=== PATIENT | female | born 1940 | race Caucasian/White ===

== ENCOUNTER 2021-12-18 23:10 | Inpatient (IN) | payer OTHER, BC ==
[~2021-12-18] VITALS: Ht 170.2 cm; Wt 83.5 kg
--- NOTE | 2021-12-18 23:14 | NUR ---
PT VY DOWNSS. TAKEN TO BED 4
[2021-12-18 23:15] VITALS: BP 92/58
[2021-12-18] MEDS ORDERED: NACL 0.9% 1,000 ML IV ONE (23:15)
[2021-12-18 23:39] LABS: BASOPHILS % (AUTO) 1.3 % (0.0-2.0); EOSINOPHILS # (AUTO) 0.2 K/uL (0-0.4); EOSINOPHILS % (AUTO) 5.5 % (0.0-4.0); HEMOGLOBIN 11.4 g/dL (12.0-16.0); LYMPHOCYTES # (AUTO) 0.8 K/uL (2.5-16.5); LYMPHOCYTES % (AUTO) 19.6 % (20.5-51.1); MEAN CORPUSCULAR HEMOGLOBIN 28 pg (27-31); MEAN CORPUSCULAR HGB CONC 33 g/dL (33-37); MEAN CORPUSCULAR VOLUME 84.8 fL (80-94); MONOCYTES # (AUTO) 0.4 K/uL (0.8-1.0); MONOCYTES % (AUTO) 10.7 % (1.7-9.3); NEUTROPHILS # (AUTO) 2.4 K/uL (1.8-7.7); NEUTROPHILS % (AUTO) 62.9 % (42.2-75.2); PLATELET COUNT (AUTO) 276 K/uL (140-450); RED BLOOD CELL COUNT(AUTO) 4.13 MIL/uL (4.20-5.40); RED CELL DISTRIBUTION WIDTH 18.4 % (11.6-13.7); WHITE BLOOD COUNT (AUTO) 3.9 K/uL (4.8-10.8)
--- NOTE | 2021-12-18 23:45 | NUR ---
PT TAKEN TO CT
--- NOTE | 2021-12-19 00:12 | NUR ---
Patient resting comfortably in bed, no c/o pain or s/s of discomfort, chest rise and fall symmetrical.
[2021-12-19 01:02] LABS: ALBUMIN 2.8 g/dL (3.4-5.0); ANION GAP 9.9 (8-16); ASPARTATE AMINOTRANSFERASE 14 U/L (15-37); CARBON DIOXIDE 32.1 mmol/L (21-32); CHLORIDE 105 mmol/L (98-107); CREATININE 0.6 mg/dL (0.6-1.3); GLUCOSE 94 mg/dL (74-106); SODIUM SERUM 143 mmol/L (136-145); TOTAL BILIRUBIN 0.2 mg/dL (0.0-1.0); UREA NITROGEN, BLOOD 10 mg/dL (7-18)
[2021-12-19 03:53] LABS: APPEARANCE,URINE SL CLOUDY (CLEAR); BILIRUBIN,URINE NEGATIVE (NEGATIVE); BLOOD, URINE 3+ (NEGATIVE); COLOR,URINE YELLOW (YELLOW); LEUKOCYTE ESTERASE ,URINE 2+ (NEGATIVE); NITRITE, URINE NEGATIVE (NEGATIVE); UGLUCOSE NEGATIVE (NEGATIVE)
[2021-12-19 04:26] LABS: RBC,URINE >20 (MANY) /HPF (0-5); WBC,URINE >25 (MANY) /HPF (0-5); YEAST,URINE Few /HPF (None Seen)
[2021-12-19] MEDS ORDERED: NACL 0.9% 1,000 ML IV ONE (05:17)
[2021-12-19] MEDS ORDERED: cefTRIAXone 1,000 MG VIAL ONE (05:30)
--- NOTE | 2021-12-19 06:00 | NUR ---
Patient cleaned, diaper changed, skin intact.
[2021-12-19] MEDS ORDERED: LACT10CA1 PO (06:43)
[2021-12-19] MEDS ORDERED: LISI20TA30 PO (06:43)
[2021-12-19] MEDS ORDERED: ALBU3SOL83 IH (06:43)
[2021-12-19] MEDS ORDERED: ATOR40TA PO (06:43)
[2021-12-19] MEDS ORDERED: DOCU-299 PO (06:43)
[2021-12-19] MEDS ORDERED: MELA5TAB6 PO (06:44)
[2021-12-19] MEDS ORDERED: LOV40I SUBQ (06:44)
[2021-12-19] MEDS ORDERED: MEMA5TAB PO (06:44)
[2021-12-19] MEDS ORDERED: QUET50TA PO (06:48)
[2021-12-19] MEDS ORDERED: [UNRECOGNIZED DRUG - CODE] PO (06:48)
[2021-12-19] MEDS ORDERED: ACET-2619 PO (06:48)
--- NOTE | 2021-12-19 07:30 | NUR ---
received pt in [facility] aox2 baseline for pt. follows commands, able to make needs known. nsr on monitor. fc draining to gravity. nad. safety maintained.
--- NOTE | 2021-12-19 07:42 | NUR ---
Change of shift report given to AM shift nurse Kesha DEL RIO. AM shift nurse Kesha RN verbalized understandign of report, no further questions.
[2021-12-19] MEDS ORDERED: ONDANSETRON 4 MG/2 ML VIAL IM/IVP PRN (08:20)
[2021-12-19] MEDS ORDERED: ACETAMINOPHEN 325 MG TAB PO PRN (08:20)
[2021-12-19] MEDS ORDERED: HYDROcodone/APAP 7.5/325 MG 1 TAB PO PRN (08:20)
[2021-12-19] MEDS ORDERED: POTASSIUM CHLORIDE 10 MEQ TABER PO PRN (08:20)
[2021-12-19] MEDS ORDERED: DOCUSATE SODIUM 100 MG GELCAP PO PRN (08:20)
[2021-12-19] MEDS ORDERED: guaiFENesin DM 200/20 MG-10 ML 10 ML UDC PO PRN (08:20)
--- NOTE | 2021-12-19 08:20 | NUR ---
RECEIVED REPORT FROM ED NURSE FOR CONTINUITY OF CARE. PT IS IN STABLE CONDITION. A/OX2, AND VERY CONFUSED. PT IS URUGUAYAN SPEAKING, BREATHING EVEN, REGULAR AND UNLABORED ON 2L VIA NASAL CANNULA. PT IS INCONTINENT OF THE BOWELS, WITH GAYLE PATENT AND HUNG TO GRAVITY. PT SKIN IS INTACT, WITH 1+ PITTING EDEMA AND REDNESS NOTED ON BILATERAL LOWER LEGS. PT DENIES PAIN AT THIS TIME. CALLED FAMILY FOR MORE ACCURATE PT HISTORY.
[2021-12-19] MEDS ORDERED: SALSALATE 500 MG PO SCH (09:00)
[2021-12-19 09:31] LABS: CHOL/HDL RATIO 1.7 (1-4.5); FREE T4 (FREE THYROXINE) 0.48 ng/dL (0.76-1.46); MAGNESIUM 1.8 mg/dL (1.8-2.4); PHOSPHORUS 4.3 mg/dL (2.5-4.9); THYROID STIMULATING HORMONE 2.7 uIU/mL (0.34-3.74)
--- NOTE | 2021-12-19 09:40 | NUR ---
PERFORMED BED BATH AND LINEN CHANGE WITH BRITNEY XIONG. PT HAD BOWEL MOVEMENT. PT WAS ABLE TO TURN WELL WITH MINOR ASSISTANCE. PT DENIES PAIN AT THIS TIME.
[2021-12-19] MEDS: QUEtiapine FUMARATE 25 MG TAB PO SCH ×2 (09:59→20:31)
[2021-12-19] MEDS: PANTOPRAZOLE 40 MG TABEC PO SCH (09:59)
[2021-12-19] MEDS: ATORVASTATIN 20 MG TAB PO SCH (09:59)
[2021-12-19] MEDS: ENOXAPARIN 30 MG/0.3 ML SYR SUBQ SCH (10:03)
[2021-12-19] MEDS: lisinopriL 20 MG TAB PO SCH (10:03)
--- NOTE | 2021-12-19 11:33 | NUR ---
DC PLANNIN YRS OLD FEMALE PATIENT WAS ADMITTED FROM [facility] WITH A DX OF ALOC AND UTI. PATIENT HAS A HX OF DEMENTIA HTN, HLD, NEUROGENIC BLADDER MALNUTRITION AND ANEMIA. CXR SHOWED PERIHILAR INFILTRATES LOW LUNG VOLUMES, HEAD CT SHOWED SMALL BENIGN APPEARING CALCIFICATION IN THE RIGHT OCCIPITAL REGION. RAPID COVID TEST NEGATIVE. ADMINISTERED IVF, IV ABX ROCEPHIN AND CONTINUED HOME MEDS. URINE CULTURE PENDING. DC PLAN TO RETURN TO [facility]. CM TO FOLLOW Addendum: 12/21/21 at 1311 by Catalina Quezada RN DC PLANNING: CALLED DAYNA AMARO OF HOME [phone] LEFT A MESSAGE X2 NO VOICE MAIL SET UP . CALLED PT'S DAUGHTER EMILY STATED SHE CAN'T TALK RIGHT NOW WILL CALL BACK AT 2;30 PM. CM TO FOLLOW Addendum: 12/22/21 at 1143 by Catalina Quezada RN DC PLANNING: RECEIVED A FORM FROM [facility], HOWEVER IN ORDER TO FAX THE FORM IT HAS TO BE SIGNED BY THE DAUGHTER. CALLED PT'S DAUGHTER EMILY STATED SHE IS HOLDING THE TRANSFER TO ROOM AND BOARD PER DAUGHTER SHE WANTED HER MOM TO GO TO [facility]. PER ROD ACCEPTED PATIENT AND CAN GO TO ROOM 700 ARRANGED TRANSPORT WITH [employer] TR[employer]ER FIXED INCOME TIME 2 PM. NOTIFIED PARTH AYALA CM TO FOLLOW
[2021-12-19 12:00] VITALS: BP 139/64
--- NOTE | 2021-12-19 14:00 | NUR ---
DISCHARGE PLANING PATIENT IS AN 81-YEAR-OLD FEMALE ADMITTED TO THE [facility]/ED ON 12/18/2021 DUE TO COMPLAINTS OF PATIENT HAVING A UTINARY TRACK INFECTION AND ALSO REPORTED SHORTNESS OF BREATH. PATIENT HAS HISTORY OF HYPERTENSION BROUGHT IN BY EMS FROM [facility]. PER PATIENT'S DAUGHTER PATIENT WILL NOT BE RETURNING BACK TO SNF/FACILITY. AFTER SHE IS DISCHARGE FROM [facility] IF SHE IS ABLE TO FIND A ROOM AND BOARD. SW MEET WITH PATIENT AT BED SIDE TO DISCUSS AND GATHER PATIENTS COLLATERAL INFORMATION. PATIENT WAS NOT ABLE TO PROVIDE ALL HER INFORMATION THEREFORE SW CONTACTED HER DAUGHTER CAMI NAGEL VIA PHONE CALL AT AND SHE WAS ABLE TO PROVIDE ALL PATIENT'S INFORMATION. PER PATIENT'S DAUGHTER SHE COMES FROM [facility] AND HAS BEEN RESIDING THERE SINCE 11/14/21. PATIENT REPORTED HAVING FAMILY SUPPORT FROM HER DAUGHTER CAMI NAGEL WHO IS HER EMERGENCY CONTACT AND MEDICAL DECICION MAKER. PATIENT HAS NO A.D. AND WAS NOT INTERESTED ON GETTING INFORMATION FORMS. PER PATIENT'S DAUGHTER SHE HAS A WHEELCHAIR AND A WALKER HER ONLY DME IN THE FACILITY. PATIENT HAS NO ISSUES GETTING OR TAKING HER MEDICATIONS FROM THE FACILITY, SHE IS VERY COMPLIANT TAKING HER MEDICATION. PATIENT WILL BE RETURNING TO THE FACILITY AFTER SHE IS STABLE FOR DISCHARGE. SW WILL FOLLOW UP NEEDED.
--- NOTE | 2021-12-19 14:19 | NUR ---
PT WAS FOUND WITH IV RIPPED OUT, AND BLOOD FROM IV SITE. BLEEDING WAS STOPPED, SITE DRESSED. PT WAS VERY CONFUSED AND AGITATED, YELLING AT STAFF. REORIENTATED PT MULTIPLE TIMES TO NO AVAIL. NOTIFIED DR. DIXON, NO ANSWER OR NEW ORDERS GIVEN.
--- NOTE | 2021-12-19 14:25 | NUR ---
PATIENT HAS BEEN SCREENED AND CATEGORIZED HIGH NUTRITION RISK. PATIENT WILL BE SEEN WITHIN 1-2 DAYS OF ADMISSION. RECEIVED REFERRAL FOR DYSPHAGIA PATTI RAJAN RD
--- NOTE | 2021-12-19 14:45 | NUR ---
PT VISIBLY CALMER, NEW 22G IV INSERTED IN LEFT AC. PT STILL CONFUSED, BUT MORE COOPERATIVE.
[2021-12-19 16:00] VITALS: BP 167/71
--- NOTE | 2021-12-19 16:00 | NUR ---
PT CURRENTLY YELLING FOR AND DAUGHTER IN ROOM. STATING SHE IS WAITING TO GET PICKED UP TO GO HOME. REPEATEDLY REORIENTED PT.
[2021-12-19] MEDS: hydrALAZINE 20 MG/ML VIAL IVP PRN (16:23)
--- NOTE | 2021-12-19 16:23 | NUR ---
BED BATH AND LINEN CHANGE PERFORMED. PER COFFEE SHOP MANAGER, PT'S SBP WAS 171. PRN HYDRALAZINE GIVEN. NO SIGNS OF DISTRESS NOTED.
--- NOTE | 2021-12-19 18:00 | NUR ---
SAT PT UP FOR DINNER, PT SHOWS NO SIGNS OF DISTRESS AT THIS TIME.
--- NOTE | 2021-12-19 19:20 | NUR ---
ENDORSED PT TO [facility] NURSE FRANCES FOR CONTINUITY OF CARE. PT IN STABLE CONDITION.
--- NOTE | 2021-12-19 19:40 | NUR ---
RECEIVED REPORT FROM AM NURSE FOR CONTINUITY OF CARE. PT IS STABLE IN BED. A&O TO NAME ONLY. CONFUSED JAPANESE SPEAKING ONLY.DENIES PAIN. ON O2 2L/NC. NO ACUTE DISTRESS. COOPERATIVE. CONFUSED DUE TO DEMENTIA. RR EVEN WITH WHEEZING ON INSPIRATION. HAS EQUAL CHEST RISE. GI INTACT ON A PUREED DIET. PT'S SKIN IS INTACT WITH REDNESS IV LFA 22G IV FLUIDS NS INFUSING AT 75CC/HR .BILAT LOWER EXTREMITIES 1+ PITTING EDEMA TENDER TO TOUCH. PT IS BEDBOUND. HX OF R HIP FRACTURE. GAYLE CATHETER PATENT DRAINING CLEAR YELLOW URINE. ALL SAFETY MEASURES IN PLACE. CALL LIGHT WITHIN REACH. WILL CONTINUE TO MONITOR.
[2021-12-19 20:00] VITALS: BP 150/59
[2021-12-19] MEDS: ZOLPIDEM 5 MG TAB PO PRN (20:36)
--- NOTE | 2021-12-19 21:00 | NUR ---
HS MEDS TAKEN WITH ENCOURAGEMENT. HAD TO REORIENT PT TO SURROUNDINGS MULTIPLE TIMES. WILL CONTINUE WITH FREQ ROUNDS AND VISUAL CHECKS. BED IS IN LOW AND LOCKED POSITION. CALL LIGHT WITHIN REACH.
[2021-12-20] VITALS: BP 157/65
[2021-12-20 04:00] VITALS: BP 165/85
[2021-12-20 07:11] LABS: BASOPHILS # (AUTO) 0.1 K/uL (0.00-0.22); BASOPHILS % (AUTO) 1.2 % (0.0-2.0); EOSINOPHILS # (AUTO) 0.2 K/uL (0-0.4); EOSINOPHILS % (AUTO) 3.3 % (0.0-4.0); HEMATOCRIT 33.4 % (36-48); LYMPHOCYTES # (AUTO) 0.9 K/uL (2.5-16.5); LYMPHOCYTES % (AUTO) 17.4 % (20.5-51.1); MEAN CORPUSCULAR HEMOGLOBIN 28 pg (27-31); MEAN CORPUSCULAR HGB CONC 33 g/dL (33-37); MEAN CORPUSCULAR VOLUME 84.5 fL (80-94); MONOCYTES # (AUTO) 0.5 K/uL (0.8-1.0); MONOCYTES % (AUTO) 10.1 % (1.7-9.3); NEUTROPHILS # (AUTO) 3.4 K/uL (1.8-7.7); PLATELET COUNT (AUTO) 261 K/uL (140-450); RED BLOOD CELL COUNT(AUTO) 3.96 MIL/uL (4.20-5.40); RED CELL DISTRIBUTION WIDTH 18.3 % (11.6-13.7); WHITE BLOOD COUNT (AUTO) 5.1 K/uL (4.8-10.8)
--- NOTE | 2021-12-20 07:25 | NUR ---
ENDORSED REPORT TO KRISTINA ARELLANO FOR CONTINUITY OF CARE. PT IS STABLE , CONFUSED. BED ALARM ON. SIDE RAILS UP X3. ALL NEEDS MET THROUGHOUT THE SHIFT.
[2021-12-20 07:27] LABS: CARBON DIOXIDE 28.5 mmol/L (21-32); CHLORIDE 106 mmol/L (98-107); CREATININE 0.5 mg/dL (0.6-1.3); GLUCOSE 100 mg/dL (74-106); POTASSIUM 3.5 mmol/L (3.5-5.1); SODIUM SERUM 142 mmol/L (136-145); UREA NITROGEN, BLOOD 8 mg/dL (7-18)
--- NOTE | 2021-12-20 07:28 | NUR ---
RECEIVED REPORT FROM TEST ENGINEERING INTERN NURSE FOR CONTINUITY OF CARE. PT IN BED AT THIS TIME, FOUND PT WITH FEET DANGLING OFF OF MED. RE-POSITIONED PT. PT IS AWAKE. RESPIRATIONS ARE EVEN AND UNLABORED. PT IS ON 2L 02 VIA NC. NO SIGNS OF DISTRESS NOTED. PT IS ALERT AND ORIENTED X1. REORIENTED PT TO PLACE, TIME, AND SITUATION. PT IS ON TRACK HELPER, SR AT THIS TIME. ABD IS NONTENDER, NONDISTENDED WITH BOWEL SOUNDS PRESENT. PER TEST ENGINEERING INTERN NURSE, LAST BOWEL MOVEMENT WAS 12/19/21. PT HAS GAYLE CATHETER IN PLACE, DRAINING CLEAR, YELLOW FLUID. PT HAS IV TO LFA, 22G. SKIN IS WARM, DRY, AND INTACT. PT HAS BILAT LOWER EXTREMITY REDNESS AND PITTING EDEMA. PT IS FROM [facility]. CALL LIGHT WITHIN REACH. ALL SAFETY MEASURES IN PLACE. WILL CONTINUE TO MONITOR.
[2021-12-20 08:00] VITALS: BP 161/84
--- NOTE | 2021-12-20 08:00 | NUR ---
Patient's Plan of Care was discussed and reviewed with OUTPATIENT SCHEDULER: KRISTINA WILL CONTINUE WITH CURRENT POC.
[2021-12-20] MEDS: ATORVASTATIN 20 MG TAB PO SCH (08:26)
[2021-12-20] MEDS: QUEtiapine FUMARATE 25 MG TAB PO SCH ×2 (08:26→20:24)
[2021-12-20] MEDS: lisinopriL 20 MG TAB PO SCH (08:26)
[2021-12-20] MEDS: PANTOPRAZOLE 40 MG TABEC PO SCH (08:27)
[2021-12-20] MEDS: ENOXAPARIN 30 MG/0.3 ML SYR SUBQ SCH (08:27)
--- NOTE | 2021-12-20 08:34 | NUR ---
ADMINISTERED ALL SCHEDULED MEDICATIONS. EDUCATED PT ON MEDS ADMINISTERED. WILL CONTINUE TO MONITOR.
--- NOTE | 2021-12-20 11:19 | NUR ---
PT ATTEMPTING TO GET OUT OF BED. PT VERY CONFUSED. CALLING OUT FOR DAUGHTER. RE-ORIENTED PT. REPOSITIONED PT. WILL CONTINUE TO MONITOR.
[2021-12-20 12:00] VITALS: BP 147/70
--- NOTE | 2021-12-20 13:14 | NUR ---
PT. WITH LOW VINAY SCALE AT MODERATE TO HIGH RISK, CONTINUE TO FOLLOW PRESSURE INJURY PREVENTION INTERVENTIONS. -POSITIONING: TURN AND REPOSITION PATIENT Q 2H OR SOONER USE PILLOWS TO KEEP BONY PROMINENCES FROM DIRECT CONTACT WITH SURFACES USE REPOSITIONING WEDGES TO PROVIDE 30-DEGREE ANGLE FOR SIDE LYING POSITIONS OFFLOADING OR FOAM DRESSING TO ALL TUBING TO PREVENT MEDICAL DEVICES RELATED PRESSURE INJURY -RE-EVALUATING AND MANAGING INCONTINENCE MONITOR SKIN CONDITION DURING POSITION CHANGE DO NOT MASSAGE REDNESS, BONY PROMINENCES FREQUENT KELBY-CARE AND PROVIDE BARRIER CREAMS PRN IF SOILING MOISTURE CONTROL BY OFFER BED ROCKWELL/URINAL /ABSORBENT PAD TO WICK AND HOLD MOISTURE KEEP SKIN DRY AND PROTECT FROM FRICTION -MANAGE FRICTION/SHEAR/MOBILITY KEEP HOB AT THE LOWEST LEVEL OF ELEVATION NO MORE THAN 30 DEGREE UNLESS OTHERWISE CONTRAINDICATED USE LIFT SHEET OR TRANSFER DEVICE TO MOVE PATIENT AND PREVENT LATERAL SHEER. PROTECT HEELS, ELBOWS BONY PROMINENCES WITH SKIN BERRIES OR FOAM DRESSING IF EXPOSED TO FRICTION OFFLOAD BILATERAL HEELS BY PLACING PILLOWS UNDER CALVES AT ALL TIMES, UNLESS OTHERWISE CONTRAINDICATED -PRESSURE REDISTRIBUTION SURFACE THERAPY JAMEY ISOFLEX MATTRESS -NUTRITION: PLEASE FOLLOW RD RECOMMENDATIONS AND OFFER NUTRITION SUPPLEMENTS IF ORDERED. PLEASE CONTACT WOUND CARE NURSE FOR ANY QUESTION AND CHANGE OF WOUND CONDITION.
--- NOTE | 2021-12-20 14:09 | NUR ---
PT FAMILY AT BEDSIDE. DAUGHTER STATES PT IS WHEEZING, AND HAS INCREASED CONFUSION ALONG WITH SLURRED SPEECH. DR DIXON MADE AWARE. NEW ORDERS NOTED AND CARRIED OUT.
--- NOTE | 2021-12-20 14:30 | NUR ---
RT CALLED TO BEDSIDE FOR PT ASSESSMENT, PT SEEN IN SEMIFOWLERS POSITION WITH FAMILY AT BEDSIDE. PT IS ALTERED AND TACHYPNEIC, THOUGH SATING WELL (97%) SEEN ON 1 LITER NASAL CANNULA. PT'S BREATH SOUNDS WERE DIMINISHED THROUGHOUT AND PRN TREATMENT WAS GIVEN WITH NO ADVERSE REACTION. WILL CONTINUE TO MONITOR.
--- NOTE | 2021-12-20 14:47 | NUR ---
12/20/21 RD INITIAL ASSESSMENT COMPLETED PLEASE REFER TO NUTRITION ASSESSMENT UNDER CARE ACTIVITY FOR ESTIMATED NUTRITIONAL NEEDS. 1. CONTINUE PUREE DIET AND HEALTHSHAKES TID TOLERATED 2. WILL CONTINUE TO MONITOR PO INTAKE 3. RD TO FOLLOW-UP 3-5 DAYS, MODERATE RISK REVIEWED BY PATTI RAJAN RD
[2021-12-20] MEDS: ALBUTEROL SULFATE/IPRATROPIU 3 ML SOL IH PRN ×2 (14:52→23:08)
[2021-12-20 16:00] VITALS: BP 129/92
--- NOTE | 2021-12-20 16:44 | NUR ---
ASSISTED WITH CHANGING AND REPOSITIONING PT. PT AGGRESSIVE, REFUSING TO HELP STAFF. RE-ORIENTED PT. WILL CONTINUE TO MONITOR.
[2021-12-20 17:55] LABS: T4 (THYROXINE) 4.4 ug/dL (4.5 - 12.0)
--- NOTE | 2021-12-20 19:09 | NUR ---
ENDORSED PT TO PIPE SMOKING MACHINE OPERATOR NURSE FOR CONTINUITY OF CARE. PT IS STABLE.
--- NOTE | 2021-12-20 19:10 | NUR ---
RECEIVED REPORT FROM KRISTINA ARELLANO FOR CONTINUITY OF CARE. PT AWAKE A&OX1 SITTING UP FINISHED DINNER ATE80%.DENIES PAIN. NEW IV 24G INSERTED IN LFA WRAPPED WITH JUDY. ON RM AIR/O2WITH NO ACUTE DISTRESS . RR EVEN AND UNLABORED WITH EQUAL CHEST RISE. GI INTACT. PT'S SKIN IS INTACT. PT IS BED BOUND GAYLE CATHETER DRAINING CLEAR YELLOW URINE. ALL SAFETY MEASURES IN PLACE. BED IN LOW AND LOCKED POSITION. BED ALARM ON. CALL LIGHT WITHIN REACH.
[2021-12-20 20:00] VITALS: BP 161/84
[2021-12-20] MEDS: ZOLPIDEM 5 MG TAB PO PRN (20:31)
[2021-12-21] VITALS: BP 139/56
--- NOTE | 2021-12-21 | NUR ---
FREQ ROUNDS. PT WHEEZING, RT CALLED. BREATHING TREATMENT GIVEN AND PATIENT PUT ON HUMIDIFIED OXYGEN. BREATHING EASIER RR EVEN AND UNLABORED. NAD. ALL SAFETY MEASURES IN PLACE. WILL CONTINUE TO OBSERVE.
[2021-12-21 04:00] VITALS: BP 148/90
--- NOTE | 2021-12-21 05:53 | NUR ---
FREQ ROUNDS. PT A&0X1-2 CONFUSED. REPOSITIONED ON R SIDE. IV L FA 24G S.L. ROCEPHIN IVPB INFUSED W/OUT DIFFICULTY. WHEEZING CONTINUES IF PT TAKES HER OXYGEN OFF. O2 2L/NC HUMIDIFIED OXYGEN. RETRIEVED AN EXTRA 300CC CLEAR YELLOW URINE FROM GAYLE CATHETER. ALL SAFETY MEASURES IN PLACE. BED ALARM ON .CALL LIGHT WITHIN REACH.
[2021-12-21 07:07] LABS: BASOPHILS % (AUTO) 1.1 % (0.0-2.0); EOSINOPHILS # (AUTO) 0.2 K/uL (0-0.4); EOSINOPHILS % (AUTO) 3.7 % (0.0-4.0); HEMATOCRIT 33.3 % (36-48); HEMOGLOBIN 10.8 g/dL (12.0-16.0); LYMPHOCYTES # (AUTO) 0.9 K/uL (2.5-16.5); LYMPHOCYTES % (AUTO) 19.5 % (20.5-51.1); MEAN CORPUSCULAR HEMOGLOBIN 28 pg (27-31); MEAN CORPUSCULAR HGB CONC 32 g/dL (33-37); MONOCYTES # (AUTO) 0.5 K/uL (0.8-1.0); MONOCYTES % (AUTO) 11.2 % (1.7-9.3); NEUTROPHILS # (AUTO) 2.9 K/uL (1.8-7.7); NEUTROPHILS % (AUTO) 64.5 % (42.2-75.2); PLATELET COUNT (AUTO) 238 K/uL (140-450); RED BLOOD CELL COUNT(AUTO) 3.91 MIL/uL (4.20-5.40); RED CELL DISTRIBUTION WIDTH 18.4 % (11.6-13.7); WHITE BLOOD COUNT (AUTO) 4.4 K/uL (4.8-10.8)
--- NOTE | 2021-12-21 07:20 | NUR ---
REVIEWED CXR DATED 12/19/21 LITHOGRAPHY CONTACT WORKER TO ENCOURAGE PATIENT FOR INCENTIVE SPIROMETRY THERAPY
[2021-12-21] MEDS: ALBUTEROL SULFATE/IPRATROPIU 3 ML SOL IH PRN ×2 (07:22→11:20)
[2021-12-21 07:28] LABS: ANION GAP 8.5 (8-16); CARBON DIOXIDE 30.5 mmol/L (21-32); CHLORIDE 106 mmol/L (98-107); CREATININE 0.4 mg/dL (0.6-1.3); GLUCOSE 99 mg/dL (74-106); SODIUM SERUM 141 mmol/L (136-145); UREA NITROGEN, BLOOD 7 mg/dL (7-18)
--- NOTE | 2021-12-21 07:32 | NUR ---
LOC ASLEEP AWAKENS BUT DROWSY WITH HUMAN RESOURCES BENEFITS SPECIALIST VERBAL COMMANDS POST HHN THERAPY PATIENT UNABLE TO PARTICIPATE IN THE INCENTIVE SPIROMETRY THERAPY AT THIS TIME HUMAN RESOURCES BENEFITS SPECIALIST TO ATTEMPT AT A LATER TIME
[2021-12-21 08:00] VITALS: BP 164/73
[2021-12-21] MEDS: QUEtiapine FUMARATE 25 MG TAB PO SCH ×2 (09:50→21:22)
[2021-12-21] MEDS: ATORVASTATIN 20 MG TAB PO SCH (09:50)
[2021-12-21] MEDS: lisinopriL 20 MG TAB PO SCH (09:51)
[2021-12-21] MEDS: hydrALAZINE 20 MG/ML VIAL IVP PRN (09:52)
--- NOTE | 2021-12-21 10:05 | NUR ---
ALL SCHEDULED MEDS GIVEN. PT IS STABLE. NO DISTRESS NOTED. WILL CONTINUE TO MONITOR.
[2021-12-21] MEDS: ENOXAPARIN 30 MG/0.3 ML SYR SUBQ SCH (10:18)
[2021-12-21] MEDS: PANTOPRAZOLE 40 MG TABEC PO SCH (10:25)
--- NOTE | 2021-12-21 10:42 | NUR ---
POST HHN THERAPY TOLERATED INCENTIVE SPIROMETRY (IS) THERAPY WELL; NEEDS ADDITIONAL IS SESSIONS; ENCOURAGED PATIENT TO USE IS EVERY 1-2 HOURS WHILE AWAKE
[2021-12-21 12:00] VITALS: BP 114/53
--- NOTE | 2021-12-21 13:45 | NUR ---
CHECKED ON PATIENT. PT IS STABLE. NO DISTRESS NOTED. WILL CONTINUE TO MONITOR.
[2021-12-21 16:00] VITALS: BP 114/57
--- NOTE | 2021-12-21 17:45 | NUR ---
CHECKED ON PATIENT. PT IS STABLE. NO DISTRESS NOTED. WILL CONTINUE TO MONITOR.
--- NOTE | 2021-12-21 19:30 | NUR ---
ENDORSED TO CLIENT SUCCESS SPECIALIST NURSE FOR CONTINUITY OF CARE. PT IS STABLE.
--- NOTE | 2021-12-21 19:31 | NUR ---
RECEIVED BEDSIDE REPORT FROM DAY SHIFT RN FOR CONTINUITY OF CARE. PT IS AAOX1. PT IS ON NC 2L. PT HAS FC DRAINING CLEAR YELLOW URINE. PT HAS LEFT FOREARM 24 GAUGE SALINE LOCK. PT HAS BILATERAL EXTREMITY PITTING EDEMA. PT NOT IN ANY ACUTE DISTRESS. PT DENIES ANY PAIN AND HAS NO COMPLAINS. WILL CONTINUE TO MONITOR THE PT.
[2021-12-21 20:00] VITALS: BP 154/79
--- NOTE | 2021-12-21 21:30 | NUR ---
SCHEDULE MEDS GIVEN. NO ADVERSE REACTION NOTED. WILL CONTINUE TO MONITOR THE PT.
--- NOTE | 2021-12-21 23:56 | NUR ---
PT IS AWAKE. PT TRIED TO GET OFF THE BED BECAUSE SHE THOUGHT IT WAS ABOUT TO BE 8AM ANS SHE WANTS TO GO HOME. PT WAS REORIENTATED. PT UNDERSTOOD ITS NIGHT TIME AND SHE CAN'T GO HOME.
--- NOTE | 2021-12-22 01:40 | NUR ---
PT IS SLEEPING COMFORTABLY IN BED. PT NOT IN ANY ACUTE DISTRESS. VISIBLE RISE AND CHEST FALL. CALL LIGHT WITHIN REACH. WILL CONTINUE TO MONITOR THE PT.
[2021-12-22 04:00] VITALS: BP 155/77
--- NOTE | 2021-12-22 04:28 | NUR ---
SCHEDULE MEDS GIVEN. NO ADVERSE REACTION NOTED. WILL CONTINUE TO MONITOR THE PT.
[2021-12-22 06:33] LABS: BASOPHILS % (AUTO) 0.8 % (0.0-2.0); EOSINOPHILS # (AUTO) 0.2 K/uL (0-0.4); HEMATOCRIT 31.8 % (36-48); HEMOGLOBIN 10.4 g/dL (12.0-16.0); LYMPHOCYTES # (AUTO) 0.8 K/uL (2.5-16.5); LYMPHOCYTES % (AUTO) 13.9 % (20.5-51.1); MEAN CORPUSCULAR HEMOGLOBIN 27 pg (27-31); MEAN CORPUSCULAR HGB CONC 33 g/dL (33-37); MEAN CORPUSCULAR VOLUME 83.4 fL (80-94); MONOCYTES # (AUTO) 0.7 K/uL (0.8-1.0); MONOCYTES % (AUTO) 12.4 % (1.7-9.3); NEUTROPHILS # (AUTO) 3.8 K/uL (1.8-7.7); NEUTROPHILS % (AUTO) 69.9 % (42.2-75.2); PLATELET COUNT (AUTO) 251 K/uL (140-450); RED BLOOD CELL COUNT(AUTO) 3.81 MIL/uL (4.20-5.40); RED CELL DISTRIBUTION WIDTH 18.4 % (11.6-13.7); WHITE BLOOD COUNT (AUTO) 5.5 K/uL (4.8-10.8)
[2021-12-22 06:38] LABS: ANION GAP 11.2 (8-16); CARBON DIOXIDE 27.7 mmol/L (21-32); CHLORIDE 105 mmol/L (98-107); CREATININE 0.4 mg/dL (0.6-1.3); GLUCOSE 98 mg/dL (74-106); POTASSIUM 3.9 mmol/L (3.5-5.1); SODIUM SERUM 140 mmol/L (136-145); UREA NITROGEN, BLOOD 7 mg/dL (7-18)
--- NOTE | 2021-12-22 07:27 | NUR ---
ENDORSED PT TO DAY SHIFT RN FOR CONTINUITY OF CARE. PT IS STABLE.
--- NOTE | 2021-12-22 07:28 | NUR ---
RECEIVED REPORT FROM PLANNING MANAGER NURSE FOR CONTINUITY OF CARE. PT AWAKE, IN BED. A&O1 TO NAME. RESPIRATIONS EVEN AND UNLABORED ON 2L NC. NO DISTRESS NOTED. DENIES PAIN. PT HAS GAYLE CATHETER IN PLACE, INTACT. IV SITE ON LFA 24G, SL. CALL LIGHT WITHIN REACH. SAFETY PRECAUTIONS IN PLACE. WILL CONTINUE TO MONITOR.
--- NOTE | 2021-12-22 07:30 | NUR ---
RT AT BEDSIDE FOR BREATHING TREATMENT.
[2021-12-22] MEDS: ALBUTEROL SULFATE/IPRATROPIU 3 ML SOL IH PRN (07:31)
[2021-12-22 08:00] VITALS: BP 130/65
[2021-12-22] MEDS: QUEtiapine FUMARATE 25 MG TAB PO SCH (09:13)
[2021-12-22] MEDS: lisinopriL 20 MG TAB PO SCH (09:14)
[2021-12-22] MEDS: ATORVASTATIN 20 MG TAB PO SCH (09:14)
[2021-12-22] MEDS: PANTOPRAZOLE 40 MG TABEC PO SCH (09:14)
[2021-12-22] MEDS: ENOXAPARIN 30 MG/0.3 ML SYR SUBQ SCH (09:15)
--- NOTE | 2021-12-22 09:21 | NUR ---
ADMINISTERED SCHEDULED MORNING MEDS. PT TEACHING ABOUT MEDS GIVEN. PT VERBALIZED UNDERSTANDING. WILL CONTINUE TO MONITOR.
--- NOTE | 2021-12-22 10:08 | NUR ---
ENDORSED PT TO ELIANE MORSE CONTINUITY OF CARE. PT IS STABLE.
--- NOTE | 2021-12-22 10:09 | NUR ---
RECEIVED PATIENT FROM EILEEN MINOR FOR CONTINUITY OF CARE. PT IS STABLE.
--- NOTE | 2021-12-22 13:30 | NUR ---
CONTACTED [facility] AND ENDORSED REPORT TO EILEEN MENDENHALL. PT WILL BE GOING TO ROOM [address] GENIE العلي. ESE TEACHER TIME AT 1400
[2021-12-22 13:31] VITALS: BP 125/57
--- NOTE | 2021-12-22 14:00 | NUR ---
PATIENT DISCHARGED OFF THE UNIT AND WILL BE GOING TO [facility] WITH [facility]SP[facility]
== END 2021-12-22 14:00 | DRG 871 ==
LOC: MED 23:10 → MTU 12-19 05:49
PROVIDERS: ADMIT Family Medicine; ATTEND Family Medicine
DX: A41.9 Sepsis, unspecified organism (principal); E43 Unspecified severe protein-calorie malnutrition; G93.41 Metabolic encephalopathy; N39.0 Urinary tract infection, site not specified; D61.818 Other pancytopenia; Z20.822 Contact with and (suspected) exposure to COVID-19; I10 Essential (primary) hypertension; F03.90 Unspecified dementia, unspecified severity, without behavioral disturbance, psychotic disturbance, mood disturbance, and anxiety; E83.51 Hypocalcemia; Z68.28 Body mass index [BMI] 28.0-28.9, adult
CPT/HCPCS: 36415; 70450; 71045; 80048; 80053; 81001; 82150; 83036; 83605; 83690; 83735; 83880; 84100; 84436; 84439; 84443; 84479; 84484; 85025; 85610; 85730; 87040; 87081; 87086; 93005; 94010; 94640; 96361; 96365; 97116; 97530; 99285; J0360; J0696; J1650; J7060; Q0092

== ENCOUNTER 2022-10-05 19:33 | Inpatient (IN) | payer OTHER, BC ==
[~2022-10-05] VITALS: Ht 165.1 cm; Wt 64.9 kg
[~2022-10-05 19:33] MED LIST: ALBU3SOL83 IH; ATOR40TA PO; DOCU-299 PO; LACT10CA1 PO; LISI20TA30 PO; LOV40I SUBQ; MELA5TAB6 PO; MEMA5TAB PO; QUET50TA PO; [UNRECOGNIZED DRUG - CODE] PO
--- NOTE | 2022-10-05 19:39 | NUR ---
[facility] BROUGHT IN PATIENT TO ER BED 06
[2022-10-05 19:47] VITALS: BP 102/52; PULSE 73; RESP 16; TEMP 98.1; O2SAT 92
[2022-10-05 19:48] VITALS: O2SAT 93
--- NOTE | 2022-10-05 20:02 | NUR ---
82YO F BIB EMS FROM [facility]. PT PRESENTS WITH MILD CONFUSION AXO3 AND LACERATION TO RIGHT EYEBROW. PT C/O PAIN AT LACERATION SITE AND POSTERIOR HEAD. PT UNABLE TO GIVE NUMERICAL PAIN LEVEL DUE TO CONFUSION. SAMOAN SPEAKING ONLY POR HISTORIAN. NKDA UNKNOWN HISTORY
[2022-10-05 20:21] LABS: BASOPHILS # (AUTO) 0.1 K/uL (0.00-0.22); BASOPHILS % (AUTO) 0.9 % (0.0-2.0); EOSINOPHILS # (AUTO) 0.3 K/uL (0-0.4); EOSINOPHILS % (AUTO) 3.6 % (0.0-4.0); HEMATOCRIT 37.4 % (36-48); HEMOGLOBIN 12.3 g/dL (12.0-16.0); LYMPHOCYTES # (AUTO) 1.2 K/uL (2.5-16.5); LYMPHOCYTES % (AUTO) 17.3 % (20.5-51.1); MEAN CORPUSCULAR HEMOGLOBIN 28 pg (27-31); MEAN CORPUSCULAR HGB CONC 33 g/dL (33-37); MEAN CORPUSCULAR VOLUME 83.6 fL (80-94); MONOCYTES # (AUTO) 0.5 K/uL (0.8-1.0); MONOCYTES % (AUTO) 6.3 % (1.7-9.3); NEUTROPHILS # (AUTO) 5.2 K/uL (1.8-7.7); NEUTROPHILS % (AUTO) 71.9 % (42.2-75.2); PLATELET COUNT (AUTO) 244 K/uL (140-450); RED BLOOD CELL COUNT(AUTO) 4.48 MIL/uL (4.20-5.40); RED CELL DISTRIBUTION WIDTH 19.1 % (11.6-13.7); WHITE BLOOD COUNT (AUTO) 7.2 K/uL (4.8-10.8)
--- NOTE | 2022-10-05 20:23 | NUR ---
XRAY AT BEDSIDE
[2022-10-05 20:34] LABS: ALBUMIN 3.3 g/dL (3.4-5.0); ANION GAP 10.4 (8-16); ASPARTATE AMINOTRANSFERASE 22 U/L (15-37); CARBON DIOXIDE 31.1 mmol/L (21-32); CHLORIDE 107 mmol/L (98-107); CREATININE 0.9 mg/dL (0.6-1.3); GLUCOSE 121 mg/dL (74-106); POTASSIUM 3.5 mmol/L (3.5-5.1); SODIUM SERUM 145 mmol/L (136-145); TOTAL BILIRUBIN 0.2 mg/dL (0.0-1.0); UREA NITROGEN, BLOOD 35 mg/dL (7-18)
[2022-10-05 20:40] LABS: PROTHROMBIN TIME 11.8 secs (10.8-13.4)
--- NOTE | 2022-10-05 20:52 | NUR ---
PT BACK FROM CT.
[2022-10-05 21:14] LABS: APPEARANCE,URINE CLEAR (CLEAR); BILIRUBIN,URINE NEGATIVE (NEGATIVE); BLOOD, URINE NEGATIVE (NEGATIVE); COLOR,URINE YELLOW (YELLOW); LEUKOCYTE ESTERASE ,URINE NEGATIVE (NEGATIVE); NITRITE, URINE NEGATIVE (NEGATIVE); PH,URINE 5.5 (5.0-9.0); UGLUCOSE NEGATIVE (NEGATIVE)
[2022-10-05 22:50] VITALS: O2SAT 95
--- NOTE | 2022-10-05 22:51 | NUR ---
PT SLEEPING AND ON BEDSIDE MONITOR. PT SHOWS NO S/S OF PAIN OR DISTRESS.
--- NOTE | 2022-10-05 23:08 | NUR ---
PT PENDING ADMISSION.
[2022-10-05] MEDS ORDERED: NACL 0.9% 1,000 ML IV ONE (23:55)
[2022-10-06] VITALS (8 sets, daily range): BP systolic 126–150; BP diastolic 53–71; PULSE 67–87; RESP 17–20; TEMP 96.9–98; O2SAT 92–98
[2022-10-06] MEDS ORDERED: NACL 0.9% 1,000 ML IV ONE (00:20)
--- NOTE | 2022-10-06 03:03 | NUR ---
PT SLEEPING WITH HOB ELEVATED. ON BEDSIDE FORESTRY WORKER. RESP EVEN AND UNLABORED. PENDING BED ASSIG FOR MED SURG
--- NOTE | 2022-10-06 04:57 | NUR ---
PT AWAKE AND MILDLY CONFUSED. AXO3. ON BEDSIDE LEARNING CENTER COORDINATOR. DENIES PAIN.
--- NOTE | 2022-10-06 06:46 | NUR ---
PT LYING AWAKE IN BED ON BEDSIDE HOGSHEAD FILLER. NO CONFUSION NOTED. NO S/S OF PAIN OR DISTRESS. PT PENDING ADMISSION.
--- NOTE | 2022-10-06 07:16 | NUR ---
CONTINUATION OF CARE, HOB ELEVATED, PT ON GRAPHIC DESIGN TEACHER, CHEST RISE AND FALL AND UNLABORED NOTED. PENDING ADMIT.
--- NOTE | 2022-10-06 07:16 | NUR ---
PT W/HOB ELEVATED, AWAKE, SMILLING. SMALL LAC AND BRUISING TO RT EYE NOTED. PT AOX2, PT UNABLE TO RECALL WHAT HAPPENED TO EYEBROW/EYE. AWATING BED ASSIGNMENT TO MED/SURG
--- NOTE | 2022-10-06 08:14 | NUR ---
Patient will be admitted to care of MINAL DIXON. Admited to TELE. Will go to room 104B. Belongings list completed. Report to GAGAN DEL RIO. Addendum: 10/06/22 at 1024 by [email or web address] PHONE REPORT TO GORGE DEL RIO.
[2022-10-06] MEDS ORDERED: ZOLPIDEM 5 MG TAB PO PRN (08:50)
[2022-10-06] MEDS ORDERED: DOCUSATE SODIUM 100 MG GELCAP PO PRN (08:50)
[2022-10-06] MEDS ORDERED: HYDROcodone/APAP 7.5/325 MG 1 TAB PO PRN (08:50)
[2022-10-06] MEDS ORDERED: guaiFENesin DM 200/20 MG-10 ML 10 ML UDC PO PRN (08:50)
[2022-10-06] MEDS ORDERED: POTASSIUM CHLORIDE 10 MEQ TABER PO PRN (08:50)
[2022-10-06] MEDS ORDERED: ONDANSETRON 4 MG/2 ML VIAL IM/IVP PRN (08:50)
[2022-10-06] MEDS ORDERED: NACL 0.9% 1,500 ML IV ONE (08:55)
--- NOTE | 2022-10-06 09:00 | NUR ---
RECIEVED REPORT FROM ER NURSE MG FOR CONTINUITY OF CARE. PT WAS STABLE UPON TRANSPORT WITH NO SIGNS OF DISTRESS. PT SI A&OX1-2, SKIN INTACT EXCEPT FOR BRUISING ON ARMS AND FACE FROM FALL, ON ROOM AIR AND AMBULATORY WITH ASSISTENCE. PT HAS A 22G IN L FOREARM THAT IS INFUSING NS AT 60ML/HR. ALL SAFETY MEASURES IN PLACE INCLUDING CALL LIGHT WITHIN REACH AND BED IN LOW POSITION. CONTINUATION OF MONITORING.
[2022-10-06] MEDS ORDERED: MECLIZINE 25 MG TAB PO PRN (09:05)
[2022-10-06] MEDS: PANTOPRAZOLE 40 MG TABEC PO SCH (09:55)
[2022-10-06] MEDS: NACL 0.9% 1,000 ML IV SCH (09:56)
--- NOTE | 2022-10-06 10:29 | NUR ---
P.T. NOTES P.T. EVAL COMPLETED; REFER TO EVAL FOR DETAILS.
[2022-10-06 10:38] LABS: CHOL/HDL RATIO 1.8 (1-4.5); FREE T4 (FREE THYROXINE) 0.53 ng/dL (0.76-1.46); MAGNESIUM 2.2 mg/dL (1.8-2.4); PHOSPHORUS 3.9 mg/dL (2.5-4.9); THYROID STIMULATING HORMONE 1.45 uIU/mL (0.34-3.74)
--- NOTE | 2022-10-06 11:20 | NUR ---
PT PULLED OUT IV INFORMED DR THAT PT IS REFUSING TO LET US TO PLACE A NEW IV. PT ALSO KEEPS TRYING TO GET OUT OF BED. PT REORIENTED TO SITUATION BUT KEEPS SAYING NO AND ARGUING WITH STAFF THAT SHE NEEDS TO LEAVE.
--- NOTE | 2022-10-06 12:51 | NUR ---
PTS FAMILY DOES NOT WANT HER TO GO BACK TO [facility] BECAUSE THEY FEEL SHE IS NOT SAFE THERE. NOTIFIED DIRECTOR OF ROTC AND OF THIS INFORMATION.
--- NOTE | 2022-10-06 13:30 | NUR ---
PATIENT HAS BEEN SCREENED AND CATEGORIZED LOW NUTRITION RISK. PATIENT WILL BE SEEN WITHIN 7 DAYS OF ADMISSION. 10/13/[address]
[2022-10-06] MEDS: LORazepam 2 MG/ML VIAL IM/IVP PRN (15:19)
--- NOTE | 2022-10-06 15:20 | NUR ---
PTS AGITATION INCREASING AND STILL TRYING TO GET OUT OF BED. TRYING TO AVOID RESTRAINING PT SO ASKED DR IF WE COULD HAVE AN ORDER FOR ATIVAN TO HELP CALM THE PATIENT. GAVE ORDER AND I ADMINISTERED MEDICATION.
--- NOTE | 2022-10-06 19:06 | NUR ---
RECEIVED REPORT FROM DAY SHIFT ELIANE PENNINGTON FOR CONTINUITY OF CARE. PT AWAKE, CONFUSED. RESPIRATIONS EVEN AND UNLABORED ON RA. NO SIGNS OF DISCOMFORT NOTED. NOTED RIGHT EYEBROW LACERATION WITH DERMABOND. NOTED BRUISES AROUND RIGHT EYE. NO IV SITE UPON ENDORSEMENT, AWARE. ATTEMPTED TO INSERT NEW IV LINE BUT PT REFUSED. RISKS AND BENEFITS EXPLAINED BUT PT STILL REFUSED. REPORT GIVEN TO ELIANE LEOS. CALL LIGHT WITHIN REACH. SAFETY PRECAUTIONS IN PLACE.
--- NOTE | 2022-10-06 19:42 | NUR ---
ENDORSED PT TO COMMERCIAL TECHNICIAN NURSE FOR CONTINUITY OF CARE. PT STABLE AT THIS TIME.
[2022-10-07] MEDS: NACL 0.9% 1,000 ML IV SCH ×2 (01:28→18:10)
--- NOTE | 2022-10-07 01:29 | NUR ---
IV FLUID HELD O130, NO IV ACCESS, DR AWARE. WILL CONTINUE TO MONITOR THE PATIENT, CALL WITHIN REACH, SIDE RAILS UP.
--- NOTE | 2022-10-07 04:57 | NUR ---
MORNING CARE DONE. PT TOLERATED WELL. PT CONFUSED, TRYING TO GET UP IN BED. SAFETY PRECAUTIONS IN PLACE. PT CLOSELY MONITORED.
--- NOTE | 2022-10-07 07:16 | NUR ---
GAVE BEDSIDE REPORT TO ELIANE PENNINGTON FOR CONTINUITY OF CARE. PT IS STABLE.
--- NOTE | 2022-10-07 07:20 | NUR ---
RECEIVED REPORT FROM ASSISTANT ATHLETIC TRAINER NURSE FOR CONTINUITY OF CARE. PT IS STABLE AT THIS TIME.
[2022-10-07 08:00] VITALS: BP 155/69; PULSE 62; RESP 16; TEMP 99; O2SAT 92
[2022-10-07] MEDS: PANTOPRAZOLE 40 MG TABEC PO SCH (08:34)
[2022-10-07 08:57] LABS: BASOPHILS # (AUTO) 0.1 K/uL (0.00-0.22); BASOPHILS % (AUTO) 1.1 % (0.0-2.0); EOSINOPHILS # (AUTO) 0.1 K/uL (0-0.4); EOSINOPHILS % (AUTO) 2.8 % (0.0-4.0); HEMATOCRIT 36.9 % (36-48); HEMOGLOBIN 12.3 g/dL (12.0-16.0); LYMPHOCYTES # (AUTO) 0.9 K/uL (2.5-16.5); LYMPHOCYTES % (AUTO) 16.6 % (20.5-51.1); MEAN CORPUSCULAR HEMOGLOBIN 27 pg (27-31); MEAN CORPUSCULAR HGB CONC 33 g/dL (33-37); MEAN CORPUSCULAR VOLUME 81.5 fL (80-94); MONOCYTES # (AUTO) 0.3 K/uL (0.8-1.0); MONOCYTES % (AUTO) 5.5 % (1.7-9.3); NEUTROPHILS # (AUTO) 3.8 K/uL (1.8-7.7); PLATELET COUNT (AUTO) 252 K/uL (140-450); RED BLOOD CELL COUNT(AUTO) 4.53 MIL/uL (4.20-5.40); RED CELL DISTRIBUTION WIDTH 18.5 % (11.6-13.7); WHITE BLOOD COUNT (AUTO) 5.2 K/uL (4.8-10.8)
[2022-10-07 09:09] LABS: ANION GAP 10.3 (8-16); CARBON DIOXIDE 31.3 mmol/L (21-32); CHLORIDE 107 mmol/L (98-107); CREATININE 0.6 mg/dL (0.6-1.3); GLUCOSE 92 mg/dL (74-106); POTASSIUM 3.6 mmol/L (3.5-5.1); SODIUM SERUM 145 mmol/L (136-145); UREA NITROGEN, BLOOD 19 mg/dL (7-18)
[2022-10-07] MEDS: LORazepam 2 MG/ML VIAL IM/IVP PRN (10:49)
--- NOTE | 2022-10-07 10:50 | NUR ---
PT WAS VERY AGITATED AND WOULD NOT GET BACK IN BED SO I ADMINISTERED A DOES OF ATIVAN 1MG IM TO HELP CALM THE PATIENT. SHE KEPT TELLING STAFF THAT SHE HAD TO LEAVE TO GO DRIVER RETRAINING INSTRUCTOR HER .
--- NOTE | 2022-10-07 12:00 | NUR ---
TRIED TO PLACE IV IN PATIENT AND SHE WOULD NOT LET US TRY.
[2022-10-07 16:00] VITALS: BP 143/57; PULSE 81; RESP 18; TEMP 98.9; O2SAT 93
--- NOTE | 2022-10-07 19:27 | NUR ---
RECIEVED PT CONFUSE , TRYING TO BED UP FROM THE BED , ENSURE SAFETY , SIDERAILS UP , BED LOW IN POS . BED ALARM ON . PT HAS NO IV ACCESS PER ELIANE PENNINGTON PT. REFUSED IV INSERTION AND THE MD IS AWARE ABOUT IT . WILL CONT. TO MONITOR .
--- NOTE | 2022-10-07 19:27 | NUR ---
ENDORSED PT TO MILL ROLL REWINDER NURSE FOR CONTINUITY OF CARE. PT STABLE AT THIS TIME.
[2022-10-07] MEDS: ACETAMINOPHEN 325 MG TAB PO PRN (19:48)
[2022-10-07 20:00] VITALS: PULSE 70; RESP 20; O2SAT 92
--- NOTE | 2022-10-07 20:00 | NUR ---
FEEDING THE PT , WHILE FEEDING THE PT . PT'S FACIAL EXPRESSION SIGNS OF TIME FLACC 3 WHILE KEEPING TOUCHING THE L HIP , BP 100 /60 , HR 70 , RR20 , O2 SAT 96 % - WILL MEDICATE . Addendum: 10/08/22 at 0755 by Stephenie Raygoza RN received pt with out iv access per delmy weber pt refused for insertion of iv - per delmy weber md aware about it .
--- NOTE | 2022-10-07 22:00 | NUR ---
SLEEPING , CHEST RISE AND FALL EQUALLY , WILL CONT. TO MONITOR
[2022-10-08] VITALS: BP 122/82; PULSE 75; RESP 18; TEMP 98.3; O2SAT 94
--- NOTE | 2022-10-08 | NUR ---
ROUNDS , NO S/SX OF ACUTE DISTRESS NOTED .
--- NOTE | 2022-10-08 04:00 | NUR ---
HAS BM - WILL CLEAN UP THE PT , WILL CONT. TO MONITOR
--- NOTE | 2022-10-08 06:00 | NUR ---
C/O PAIN BP118 /61 , RR18 , PR76 , O2 SAT 94 % - WILL MEDICATE .
[2022-10-08] MEDS: ACETAMINOPHEN 325 MG TAB PO PRN (06:19)
[2022-10-08 06:57] LABS: CARBON DIOXIDE 29.5 mmol/L (21-32); CHLORIDE 104 mmol/L (98-107); CREATININE 0.6 mg/dL (0.6-1.3); GLUCOSE 125 mg/dL (74-106); POTASSIUM 3.5 mmol/L (3.5-5.1); SODIUM SERUM 143 mmol/L (136-145); UREA NITROGEN, BLOOD 18 mg/dL (7-18)
--- NOTE | 2022-10-08 07:10 | NUR ---
PT AWAKE , ENDORSED FOR CONT. OF CARE . , BED ALARM ON .
--- NOTE | 2022-10-08 07:11 | NUR ---
RECEIVED PT FROM ELIANE COLLIER, FOR CONTINUITY OF CARE. PT IN BED AWAKE AND YELLING. AOX2, RESPIRATIONS EVEN AND UNLABORED ON RA. PER NANDO PT HAS NO IV ACCESS AND DR IS AWARE. SKIN WARM AND DRY TO TOUCH. ALL SAFETY PRECAUTIONS IN PLACE. PT NEAR NURSES STATION.
[2022-10-08 07:18] LABS: BASOPHILS % (AUTO) 0.9 % (0.0-2.0); EOSINOPHILS # (AUTO) 0.2 K/uL (0-0.4); EOSINOPHILS % (AUTO) 3.7 % (0.0-4.0); HEMATOCRIT 35.8 % (36-48); LYMPHOCYTES # (AUTO) 1.4 K/uL (2.5-16.5); LYMPHOCYTES % (AUTO) 28.8 % (20.5-51.1); MEAN CORPUSCULAR HEMOGLOBIN 27 pg (27-31); MEAN CORPUSCULAR HGB CONC 34 g/dL (33-37); MEAN CORPUSCULAR VOLUME 81.3 fL (80-94); MONOCYTES # (AUTO) 0.4 K/uL (0.8-1.0); MONOCYTES % (AUTO) 7.4 % (1.7-9.3); NEUTROPHILS # (AUTO) 2.9 K/uL (1.8-7.7); NEUTROPHILS % (AUTO) 59.2 % (42.2-75.2); PLATELET COUNT (AUTO) 242 K/uL (140-450); RED CELL DISTRIBUTION WIDTH 18.7 % (11.6-13.7); WHITE BLOOD COUNT (AUTO) 4.9 K/uL (4.8-10.8)
[2022-10-08 08:00] VITALS: BP 140/64; PULSE 69; PULSE 70; RESP 18; RESP 19; TEMP 97.9; O2SAT 94; O2SAT 99
--- NOTE | 2022-10-08 08:00 | NUR ---
Patient's Plan of Care was discussed and reviewed with LOG POND WORKER: Joanne
[2022-10-08] MEDS: PANTOPRAZOLE 40 MG TABEC PO SCH (08:37)
--- NOTE | 2022-10-08 08:37 | NUR ---
ORAL MEDICATION GIVEN, PT TOLERATED WELL. PT INFORMED OF NEEDING IV ACCESS. PT STARTS TO YELL. REFUSING.
[2022-10-08] MEDS: NACL 0.9% 1,000 ML IV SCH (10:50)
[2022-10-08] MEDS ORDERED: PANT40EC56 PO (11:45)
--- NOTE | 2022-10-08 13:15 | NUR ---
WOUND CARE EVALUATION NOTES: REASON FOR EVALUATION: RIGHT EYEBROW LACERATION WOUND ASSESSMENT COMPLETED ON THIS 82 Y/O FEMALE ADMITTED TO [facility] FOR SYNCOPE AND S/P FALL. PATIENT IS FROM [facility]. PAST MEDICAL HISTORY INCLUDES DEMENTIA, HYPERTENSION, ARTHRITIS, HYPERLIPIDEMIA. HAS RIGHT EYE RACOON EYES AND GENERALIZED ECCHYMOSIS ON BILATERAL UPPER ARM FROM FALL. AAOX2, ORAL MUCOSAL MEMBRANES DRY. REQUIRES ASSISTANCE WITH TURNING. PLAN OF CARE AND PRESSURE PREVENTATIVE MEASURES DISCUSSED WITH PATIENT AND PRIMARY RN. PATIENT VERBALIZED UNDERSTANDING, REINFORCEMENT NEEDED. PATIENT ADMITTED WITH RIGHT EYEBROW LACERATION S/P FALL AT ASSISTED LIVING FACILITY COMORBIDITIES RELATED TO FURTHER SKIN BREAKDOWN SUCH DECREASED MOBILITY AND S/S OF DEHYDRATION. INTEGUMENTARY: - RIGHT UPPER EYEBROW CLOSED LACERATION WOUND WITH DERMABOND GLUE S/P FALL AT NURSING FACILITY 1 X 0.2 X 0 CM. KELBY-WOUND INTACT, PINK, NO DISCHARGE. RECOMMENDATIONS: - RIGHT UPPER EYEBROW CLOSED LACERATION WOUND WITH DERMABOND GLUE S/P FALL:CLEANSE WITH NS, PAT DRY, AND LEAVE MAINTENANCE AND REPAIR WORKER DAILY. - TURN AND REPOSITION PATIENT Q2H TO LEFT AND RIGHT SIDE TO OFFLOAD SACRALCOCCYX. - ASSESS AND MONITOR SKIN CONDITION DURING POSITION CHANGE. PLEASE PAY ATTENTION TO SACRALCOCCYX AND HEELS. - KEEP SKIN DRY AND CLEAN AT ALL TIMES. - RD CONSULT RECOMMENDATIONS DISCUSSED WITH PRIMARY RN. WILL FOLLOW-UP PATIENT Q7-10 DAYS AND PRN. PLEASE CONTACT WOUND CARE NURSE FOR ANY CONCERNS AND CHANGES IN WOUND CONDITION.
--- NOTE | 2022-10-08 13:49 | NUR ---
FAMILY AT BEDSIDE, PT TALKING TO FAMILY, WATCHING TV.
--- NOTE | 2022-10-08 15:01 | NUR ---
DC PLANNING: CM SPOKE WITH PT'S DAUGHTER, REQUESTING HER MOM TO GO TO [facility]. CM FAXED ALL PAPER WORK AWAITING FOR BED. CM TO FOLLOW
[2022-10-08 16:00] VITALS: BP 140/74; PULSE 73; RESP 18; TEMP 98.6; O2SAT 95
--- NOTE | 2022-10-08 17:36 | NUR ---
CALLED [facility]. REPORT GIVEN TO TAL. ALL QUESTIONS ANSWERED.
[2022-10-08] MEDS: LORazepam 2 MG/ML VIAL IM/IVP PRN (17:44)
--- NOTE | 2022-10-08 17:55 | NUR ---
TRANSPORT STAFF ARRIVED, PT BELONGINGS GATHERED AND HANDED TO STAFF. NO NAME BAND, NO IV. PT IS STABLE CONDITION. DC TO [facility]. CALLED PT DAUGHTER EMILY TO INFORM PT IS BEING PICKED UP. ALL QUESTIONS ANSWERED.
== END 2022-10-08 17:55 | DRG 640 ==
LOC: MED 19:33 → MMU 23:58 → UNDOADMIN 10-06 00:22 → MMU 10-06 00:22 → MTU 10-06 06:23 → MMU 10-06 06:23 → UNDODISIN 10-08 17:55
PROVIDERS: ADMIT Family Medicine; ATTEND Family Medicine
DX: E86.0 Dehydration (principal); G93.41 Metabolic encephalopathy; E44.1 Mild protein-calorie malnutrition; S51.011A Laceration without foreign body of right elbow, initial encounter; S01.111A Laceration without foreign body of right eyelid and periocular area, initial encounter; S05.11XA Contusion of eyeball and orbital tissues, right eye, initial encounter; I10 Essential (primary) hypertension; F03.90 Unspecified dementia, unspecified severity, without behavioral disturbance, psychotic disturbance, mood disturbance, and anxiety; E78.5 Hyperlipidemia, unspecified; W18.39XA Other fall on same level, initial encounter; Z68.23 Body mass index [BMI] 23.0-23.9, adult; Y93.89 Activity, other specified; Y92.89 Other specified places as the place of occurrence of the external cause; Y99.8 Other external cause status
CPT/HCPCS: 36415; 70450; 70486; 71045; 72125; 72170; 80048; 80053; 81003; 82150; 83036; 83690; 83735; 83880; 84100; 84436; 84439; 84443; 84479; 84484; 85025; 85610; 85730; 87081; 90471; 90715; 93005; 93880; 96360; 97110; 97112; 97116; 97530; 99285; J0696; J2060; J7060; Q0092